=== PATIENT | female | born 1970 | race American Indian/Alaskan Native ===

== ENCOUNTER 2017-04-20 09:32 | Day surgery (SDC) | payer OTHER ==
[2017-04-20] MEDS ORDERED: Lactated Ringer's 500 ML IV ONE (09:46)
[2017-04-20] MEDS ORDERED: Propofol 10 mg/ml Inj (20 ML) ONE (10:06)
[2017-04-20 10:51] VITALS: TEMP 97.5
[2017-04-20 11:06] VITALS: BP 136/87; PULSE 83; RESP 25; O2SAT 100
== END 2017-04-20 11:38 | disposition home or self-care (01) ==
LOC: H.ENDO 09:32
PROVIDERS: ATTEND Internal Medicine Gastroenterology
DX: R13.10 Dysphagia, unspecified (principal); G47.30 Sleep apnea, unspecified; J45.909 Unspecified asthma, uncomplicated; K44.9 Diaphragmatic hernia without obstruction or gangrene
CPT/HCPCS: 43239; 88305; J2001; J2704; J7120